=== PATIENT | male | born 1950 | race Caucasian/White ===

== ENCOUNTER 2019-07-14 08:12 | Day surgery (SDC) | payer BC, OTHER ==
[2019-06-26 11:41] VITALS: BMI 25.6
[2019-07-14 10:22] VITALS: BP 129/78; PULSE 77; TEMP 98.4
--- NOTE | 2019-07-21 11:39 | PATH ---
Surgical Pathology Report Patient Name: RADHA DEVLIN [facility]. Rec. #: [id number] /Age/Gender: 1950 (Age: 68) / M Account: [id number] Location: [facility] Taken: 07/14/2019 Received: 07/14/2019 Reported: 07/21/2019 Physicians: Percy Espinosa M.D. Specimen(s) Received A: HOT SNARE POLYPECTOMY MID RIGHT COLON X2 B: HOT SNARE POLYPECTOMY DISTAL RIGHT COLON X3 Clinical History Polyps Final Diagnosis A. MID RIGHT COLON, HOT SNARE POLYPECTOMY (X2): FRAGMENTS OFTUBULAR ADENOMA(S) AND FOOD MATTER. B. DISTAL RIGHT COLON, HOT SNARE POLYPECTOMY (X3): FRAGMENTS OF TUBULAR ADENOMA (S) AND FOOD MATTER. Electronically Signed Beth Mcnally M.D. Gross Description A. received in a, labeled, "hot snare polypectomy mid right colon (x2)" are three portions of aguilar polypoid tissue ranging from 0.4-0.7 cm in greatest dimension. Entirely submitted in one cassette. B. Received in formalin, labeled, "hot snare polypectomy distal right colon (x3)" are seven portions of aguilar, polypoid tissue, ranging from 0.3-0.8 cm in greatest dimension. Entirely submitted in one cassette.
== END 2019-07-14 10:22 | disposition home or self-care (01) ==
LOC: FASU-ENDO 08:12
PROVIDERS: ATTEND Internal Medicine Gastroenterology
PROC: 0DBK8ZX Excision of Ascending Colon, Via Natural or Artificial Opening Endoscopic, Diagnostic (ICD-10-PCS; principal; 2019-07-14 09:03)
DX: Z86.010 Personal history of colon polyps (principal); D12.2 Benign neoplasm of ascending colon
CPT/HCPCS: 88305-TC